=== PATIENT | female | born 1995 | race American Indian/Alaskan Native ===

== ENCOUNTER 2017-01-01 10:30 | Emergency (ER) | payer MEDICAID, OTHER ==
--- NOTE | 2017-01-01 11:22 | Emergency Department Report ---
HPI - General Chief Complaint: Psych Time Seen by Provider: 01/01/17 11:08 - HPI HPI: This is a 21-year-old Afro-Stateless female who presents to the emergency department I EMS from home with her godmother/cousin and her grandmother currently bedside. The patient apparently has been dealing with some depression like symptoms for the past one to 1.5 weeks. For the past 3-4 days the patient has become nonverbal. There is some listing on paperwork from [facility] as well as through triage that says the patient has bipolar. However family says that she had one episode of severe depression in February or March of last year that required inpatient admission to [facility] which is when she got medication and diagnosis. The patient was started on medication but stopped them herself when she got better. Family says that the patient just restarted her Lexapro, Wellbutrin, Risperdal and trazodone yesterday for the first time in about 9 months. There is been no mention by the patient of any suicidal or homicidal ideations or any hallucinations. However the patient is currently still nonverbal, even when family is asked to leave the room, and therefore the patient is a poor historian. ED Past Medical Hx - Past Medical History Previous Medical History?: Yes Hx Psychiatric Treatment: Yes (Bipolar) - Surgical History Past Surgical History?: No - Social History Smoking Status: Never Smoker Substance Use Type: None - Medications Home Medications: Home Medications Medication Instructions Recorded Confirmed Last Taken Type Escitalopram [Lexapro] 10 mg PO DAILY 01/01/17 01/01/17 12/31/16 History LORazepam [Ativan] 0.5 mg PO TID 01/01/17 01/01/17 Unknown History buPROPion [Wellbutrin] 100 mg PO BID 01/01/17 01/01/17 12/31/16 History risperiDONE [RisperDAL] 0.5 mg PO BID 01/01/17 01/01/17 12/31/16 History traZODone [Desyrel] 50 mg PO QHS 01/01/17 01/01/17 12/31/16 History ED Review of Systems ROS: Stated complaint: DEPRESSION Other details as noted in HPI Comment: Unobtainable due to pts medical conditions Psychiatric: anxiety, depression Physical Exam - Physical Exam Physical Exam: GENERAL: The patient is well-developed well-nourished. HEENT: Normocephalic. Atraumatic. Patient has staring forwards with occasional blinking and otherwise unable to assess extra ocular motion. Patient has moist mucous membranes. Pupils equal reactive to light bilaterally. NECK: Supple. Trachea is midline. CHEST/LUNGS: Clear to auscultation. There is no respiratory distress noted. HEART/CARDIOVASCULAR: Regular. There is no tachycardia. There is no gallop rub or murmur. ABDOMEN: Abdomen is soft, nontender. Patient has normal bowel sounds. There is no abdominal distention. SKIN: Skin is warm and dry. NEURO: Patient is currently nonverbal and noncooperative. She withdraws to painful stimuli. MUSCULOSKELETAL: There is no tenderness or deformity. There is no evidence of acute injury. ED Medical Decision Making - Lab Data Result diagrams: 01/01/17 11:17 01/01/17 11:17 - Medical Decision Making 21-year-old female presents the emergency department being nonverbal or even slightly catatonic with some suggestion of depression by family members. The patient is nonverbal and a poor historian it is unknown if there was any inciting event. Patient does withdraw from painful stimuli. However since the patient remains nonverbal I cannot clearly this patient to say that she is not a candidate to be a 1013 as there could be some underlying severe hallucinations or suicidal/homicidal ideations. If nothing else, the patient is a candidate to be a 1013 as she is not able to take care of herself and complete her ADLs. For this reason the patient will need inpatient psychiatric admission for stabilization. The patient's labs have been unremarkable including no signs of infection, and I to light abnormalities, renal insufficiency. Patient has negative urine drug screen. No urinary tract infection and the patient is not . Urine drug screen positive only for marijuana. Patient's vital signs stable throughout her ED course including being afebrile. Patient appears medically cleared for psychiatric placement and crisis services been contacted to assist. - Differential Diagnosis depression, bipolar, catatonia, schizophrenia Critical Care Time: No Critical care attestation.: If time is entered above; I have spent that time in minutes in the direct care of this critically ill patient, excluding procedure time. ED Disposition Clinical Impression: Nonverbal, Catatonia Depression Qualifiers: Depression Type: unspecified Qualified Code(s): F32.9 - Major depressive disorder, single episode, unspecified Disposition: DC/TX PSY HOSP/PSY UNIT Is pt being admited?: No Condition: Stable Referrals: PRIMARY CARE, [Primary Care Provider] - 3-5 Days Time of Disposition: 12:43
[2017-01-01 11:34] LABS: Basophils % (Auto) 0.8 % (0.0-1.8); Eosinophils % (Auto) 0.5 % (0.0-4.3); Hematocrit 41.4 % (30.3-42.9); Hemoglobin 13.9 gm/dl (10.1-14.3); Mean Corpuscular HGB Conc 34 % (30-34); Mean Corpuscular Hemoglobin 32 pg (28-32); Mean Corpuscular Volume 95 fl (79-97); Platelet Count 240 K/mm3 (140-440); Red Blood Count 4.34 M/mm3 (3.65-5.03); Red Cell Distribution Width 12.5 % (13.2-15.2); White Blood Count 5.8 K/mm3 (4.5-11.0)
[2017-01-01 11:45] LABS: Anion Gap 15 mmol/L; BUN/Creatinine Ratio 5.55; Blood Urea Nitrogen 5 mg/dL (7-17); Calcium 9.2 mg/dL (8.4-10.2); Carbon Dioxide 26 mmol/L (22-30); Chloride 102.3 mmol/L (98-107); Glucose 104 mg/dL (65-100); Potassium 3.5 mmol/L (3.6-5.0); Sodium 140 mmol/L (137-145)
[2017-01-01 12:13] LABS: Urine Drugs of Abuse Note Disclamer
[2017-01-01 12:23] LABS: Bilirubin,Urine NEG (Negative); Blood,Urine NEG (Negative); Ketones,Urine TR mg/dL (Negative); Leukocyte Esterase,Urine TR (Negative); Mucus,Urine 3+ /HPF; Nitrite,Urine NEG (Negative)
--- NOTE | 2017-01-01 14:07 | Cat Scan Report ---
CT head without contrast: Altered mental status. The cerebral anatomy appears unremarkable. No evidence of mass, focal lesion, hemorrhage, or extracerebral collection. The visualized bones are unremarkable. There is a small retention cyst in the right sphenoid sinus. No prior study for comparison. Impression: Normal intracranial scan.
[2017-01-01] MEDS ORDERED: AMMONIA INHALANT IH ONE (21:49)
[2017-01-02] MEDS ORDERED: ATIVAN IM ONE (14:47)
[2017-01-02] MEDS ORDERED: ZOFRAN ONE (18:24)
[2017-01-02] MEDS ORDERED: ZOFRAN IV ONE (18:37)
--- NOTE | 2017-01-02 19:16 | Consultation ---
History of Present Illness - Reason for Consult Consult date: 01/02/17 Reason for consult: psychiatric evaluation - Chief Complaint Chief complaint: " She had an episode" per the grandmother Patient is nonverbal - History of Present Psychiatric Illness Cornelio Carrera is a 21 year old black female brought to the emergency department by her family. They noticed about 1-2 weeks ago she was not acting herself and seemed confused or dazed. Starting yesterday she did not speak and had to be prompted to care for herself, including toileting. She has a history of a similar episode one year ago there are hospitalization in psychiatric facility [facility]. Family reported that she was there for approximately 2 weeks and went home and recovered fairly quickly after that. She went on to graduate from high school after that. Patient's been off of her medications for an unknown amount of time and then began taking them yesterday. Medications included Lexapro, Wellbutrin, Risperdal, and trazodone. Family denies alcohol or substance use. Her urine drug screen is positive for marijuana. On my initial exam she was nonverbal, resistant to passive movement of her extremities, resistant to open her eyes when I attempted. Dr. Rutherford examined her a few hours later and at that time her eyes were open, although her blink rate is significantly slow, and per his exam she was flaccid. She was also incontinent of urine 2. There is concern for subclinical status epilepticus and therefore Ativan was administered at approximately 1512 and then again at 1517. Following the administration of Ativan she began to respond to external stimuli, although remained nonverbal. Following this exam, she was examined again. She remained nonverbal with the exception of soft whisper of one word. Limbs flaccid. She appeared to have difficulty swallowing and shortly after vomited. She vomited twice. We are unable to ascertain her thought process or thought content or any psychotic symptoms Medications and Allergies Allergies Allergy/AdvReac Type Severity Reaction Status Date / Time ceftriaxone sodium Allergy Rash Verified 11/02/13 18:20 [From Rocephin] Home Medications Medication Instructions Recorded Confirmed Last Taken Type Escitalopram [Lexapro] 10 mg PO DAILY 01/01/17 01/01/17 12/31/16 History LORazepam [Ativan] 0.5 mg PO TID 01/01/17 01/01/17 Unknown History buPROPion [Wellbutrin] 100 mg PO BID 01/01/17 01/01/17 12/31/16 History risperiDONE [RisperDAL] 0.5 mg PO BID 01/01/17 01/01/17 12/31/16 History traZODone [Desyrel] 50 mg PO QHS 01/01/17 01/01/17 12/31/16 History Past psychiatric history - Past Medical History Past Medical History: No medical history - past Psychiatric treatment and history Psych: Psychosis psychiatric treatment history: She was treated for a similar episode one year ago She was sent to [email or web address] at that time Family denies any recent depression or anxiety or other evidence of psychosis Family denies she's ever had a suicide attempt - Social History Social history: lives with family, other (urine drug screen is positive for marijuana) Mental Status Exam - Vital signs Last Vital Signs Temp 98 F 01/02/17 05:23 Pulse 65 01/02/17 08:29 Resp 15 01/02/17 08:29 BP 124/76 01/02/17 08:29 Pulse Ox 93 01/02/17 08:29 - Exam Narrative exam: Unable to determine orientation, thought content, thought process, psychotic symptoms Speech: other (nonverbal) Concentration: other (unable to determine) Motor activity: lethargic Level of consciousness: other (appears variable) Appetite: decreased Results Result Diagrams: 01/01/17 11:17 01/01/17 11:17 All other labs normal. Assessment and Plan Assessment and plan: Impression: Catatonia versus subclinical status epilepticus She is nonverbal, has a reduced blink rate, and gegenhalten is present She responded to Ativan which would support a diagnosis of either condition Plan: She is at risk for aspiration Consider she may need evaluation for swallowing GI prophylaxis is recommended DVT prophylaxis is recommended It is unknown how long this condition will occur Monitor closely for nutritional needs Ativan 1 mg 3 times a day IV for the treatment of suspected catatonia, and this would also be helpful for status epilepticus. Cardiac monitoring is recommended that she will be getting Ativan on a scheduled basis Recommend EEG to rule out status epilepticus Psychiatry will continue to follow
[2017-01-02] MEDS: ATIVAN IV SCH (21:06)
[2017-01-03] MEDS ORDERED: ATIVAN IV ONE (04:56)
[2017-01-03] MEDS ORDERED: ZOFRAN ONE (05:41)
[2017-01-03] MEDS ORDERED: ZOFRAN IV ONE (05:54)
[2017-01-03] MEDS: ATIVAN IV SCH ×3 (09:09→21:02)
--- NOTE | 2017-01-03 10:12 | Progress Note ---
Subjective - Reason for Consult Consult date: 01/03/17 Reason for consult: Psychiatry Follow-up - Chief Complaint Chief complaint: "Patient communicating more today" This is a 21 year old black female brought to the emergency department by her family. They noticed a change in patient's behavior (confusion or being dazed). Today patient presents with dazed type of stare with intermittent blinking of her eyes. She would answers questions with a delayed responses. She remembered being in another room yesterday by pointing to that location. Patient could tell me her b-day, but could not tell me the president of the [employer]. Her gait is unsteady and needed assistance ambulating. Per her assigned RN, she is verbal more today than yesterday. Patient struggled swallowing a small teaspoon of grits. Last administration of Zofran was this morning @ 0555 for N/V. No gestures of SI/HI's or AVH's at this time. Mental Status Exam - Vital signs Last Vital Signs Temp 98 F 01/02/17 05:23 Pulse 87 01/03/17 06:00 Resp 18 01/03/17 06:00 BP 102/67 01/03/17 06:00 Pulse Ox 100 01/03/17 06:00 - Exam Narrative exam: Unable to assess per patient's presentation Assessment and Plan Impression: This is a 21 year old black female brought to the emergency department by her family. They noticed a change in patient's behavior ( confusion or being dazed). Today patient presents with dazed type of stare with intermittent blinking of her eyes. She has an unsteady on gait and need assistance while ambulating. No gestures of SI/HI's or AVH's at this time. Ativan is lessen the catatonic state of the patient. Positive for marijuana. Collateral information from grandmother Karina Fry - She states that patient has seen a psychiatrist in the past. She patient was dx with depression and possible bipolar. She could not remember the patient's medications. She did mentioned that the patient had a similar situation last year with altered mental status after she went to a democrat. The grandmother believe the patient consumed "some type of drug " at this democrat. Recommendation/Plan: Continue 1013. She is at risk for aspiration with a need for a swallowing evaluation. GI/DVT Prophylaxis is recommended. Monitor closely for nutritional needs. Continue Ativan 1 mg 3 times a day IV for the treatment of suspected catatonia. Also, this would also be helpful for status epilepticus. Cardiac monitoring is recommended because of the scheduled Ativan. Recommend EEG to rule out status epilepticus. Psychiatry will continue to follow.
--- NOTE | 2017-01-03 10:49 | Emergency Department Report ---
Blank Doc - Documentation Documentation: Patient was reevaluated today by myself. She is currently getting her daily evaluation by the psychiatry service. Patient currently in bed 14 standing up looking out the window as the patient was found wandering in the halls in the back rooms towards psych. I had a low suspicion previous of the subclinical status epilepticus that was suggested previously and I believe that this reaffirms that the patient has more of a psych issue with problems with catatonia. The patient has been seen eating when her grandmother comes and feeds her but the patient still will not take any food or medication to pass a swallow study. She will remain an aspiration risk until we can see that she is visibly eating or drinking on her own accord. She will continue to get the Ativan as treatment for catatonia but will have to remain on a monitor when doing so. Once the patient is able to show improvement and/or pass a swallow study and become less of a concern for aspiration, home meds will be restarted. Her vital signs are stable. No new labs were ordered today.
[2017-01-03] MEDS ORDERED: LEXAPRO PO SCH (11:00)
[2017-01-03] MEDS ORDERED: RisperDAL PO SCH (11:00)
[2017-01-03] MEDS ORDERED: WELLBUTRIN PO SCH (11:00)
--- NOTE | 2017-01-03 13:42 | Event Note ---
Date: 01/03/17 1215 - Informed assigned MOLD PRESSER that patient complains of a sore throat. TSH serum drawn along with culture swab of her throat.
[2017-01-04] MEDS ORDERED: ZOFRAN ONE (01:05)
[2017-01-04] MEDS ORDERED: ZOFRAN IV ONE (01:15)
[2017-01-04] MEDS ORDERED: BENADRYL IM ONE (01:21)
[2017-01-04] MEDS ORDERED: GEODON IM ONE (01:25)
--- NOTE | 2017-01-04 01:25 | Event Note ---
Date: 01/04/17 Patient is vomiting and requested medication. Zofran initially ordered. However, patient began screaming and stating her throat was hurting. Patient will not speak fluently but will say "okay" and "pain" at times. She would not cooperate and allow me to look in her throat. Apparently patient had a negative strep test earlier and has been witnessed eating without difficulty when her grandmother feeds her but will not eat or drink home (as per DR Poe note). Geodon and Benadryl ordered since pt is screaming intermittently complaining of pain to her throat. Pending CT without contrast of neck to ensure that there isn't any obvious airway compromise or swelling. Patient was resting fter receiving Geodon 10 mg of Benadryl [address] scan reveals no neck masses, abscesses, adenopathy, and no airway compromise
[2017-01-04] MEDS ORDERED: WATER FOR INJ (PF) 10 ML ONE (01:28)
[2017-01-04] MEDS: GEODON IM ONE ×2 (01:48→01:59)
--- NOTE | 2017-01-04 03:43 | Cat Scan Report ---
FINAL REPORT PROCEDURE: CT NECK WO CON TECHNIQUE: Computerized axial tomography of the soft tissue neck was performed following the IV injection of iodinated nonionic contrast. HISTORY: difficulty swallowing COMPARISON: No prior studies are available for comparison. FINDINGS: Skull and scalp: Normal. Paranasal sinuses: Normal. Nasopharynx: Normal . Oral cavity: Normal . Epiglottis/vallecula: Normal . Larynx/pyriform sinuses: Normal . Thyroid gland: Normal . Lymph nodes: None enlarged . Salivary glands: Normal . Upper thorax: Normal . IMPRESSION: There is no neck mass, abscess or adenopathy. There is no airway compromise. Bony structures are unremarkable.
[2017-01-04] MEDS: ATIVAN IV SCH ×4 (10:23→21:40)
--- NOTE | 2017-01-04 13:07 | Progress Note ---
Subjective - Reason for Consult Consult date: 01/04/17 Reason for consult: psychiatric follow up - Chief Complaint Chief complaint: "Patient communicating more today" This is a 21 year old black female brought to the emergency department by her family. Trouble swallowing. Indicated by observation and patient blinking to communication, although slow blink rate. No gestures of SI/HI's or AVH's at this time. Nursing staff reports that she was yelling last night and when family came in to see more dependent upon them for ADLs. She had a CT of her neck yesterday for concerns with swallowing. Staff report that her family has been giving her food and liquids. Patient is nonverbal with me today. She appears to have difficulty swallowing although her breathing does not appear to be affected. She indicated via blinking that she is having trouble swallowing. She has been receiving Ativan 3 times a day, IV for the treatment of catatonia. Mental Status Exam - Vital signs Last Vital Signs Temp 98.1 F 01/03/17 11:10 Pulse 85 01/03/17 18:59 Resp 20 01/04/17 05:48 BP 141/82 01/03/17 11:10 Pulse Ox 98 01/04/17 05:48 - Exam Orientation: person (she turns her head when her name is called) Affect: flat Mood: other (unable to assess) Thought content: other (unable to assess) Perceptions: other (unable to assess) Speech: other (nonverbal) Concentration: other (unable to assess) Motor activity: lethargic Level of consciousness: alert, confused Interaction: other (eye contact only) Assessment and Plan Impression: This is a 21 year old black female brought to the emergency department by her family. They noticed a change in patient's behavior (confusion or being dazed). Today patient remains with a dazed type of stare with intermittent blinking of her eyes. She has an unsteady on gait and need assistance while ambulating. No gestures of SI/HI's or AVH's at this time. Ativan is to lessen the catatonic state of the patient. Positive for marijuana. Catatonia. Muscle tone is affected and she is non-ambulatory intermittently. She indicates that she is having difficulty swallowing. This can put her at risk of aspiration and DVT. Plan: Swallow evaluation ordered Recommended GI prophylaxis, DVT prophylaxis. She is at risk for aspiration recommended to hold by mouth intake until the swallow evaluation Hydration status needs to be addressed. Consider IV fluids Hold off on antipsychotics Recommend Ativan 1 mg 4 times daily intravenously for catatonia She needs to be on cardiac monitoring while on Ativan intravenously
[2017-01-04] MEDS ORDERED: NACL 0.9% 1000 ML 1,000 ML IV ONE (18:16)
--- NOTE | 2017-01-04 19:50 | Consultation ---
History of Present Illness - Reason for Consult Consult date: 01/04/17 Requesting physician: HAM VALVERDE - History of Present Illness 21 YO female with Depression, bipolar disorder NOS, Medication Noncompliance presents to ED for evaluation. Pt brought to ED by family members for acting depressed, and not talking for 3-4 days prior to presentation to ED. Pt resting comfortably in bed at time of exam, with family at bedside. CT scan reviewed. No mechanical obstruction. Pt is voluntarily refraining from eating and swallowing. No acute mechanical or neurologic derangement. Labs reviewed and unremarkable. Past History Past Medical History: other (Depression, bipolar, Noncompliance) Past Surgical History: No surgical history, Other (reviewed) Social history: single, lives with family, other (urine drug screen is positive for marijuana). denies: smoking, alcohol abuse, prescription drug abuse Family history: hypertension Medications and Allergies Allergies Allergy/AdvReac Type Severity Reaction Status Date / Time ceftriaxone sodium Allergy Rash Verified 11/02/13 18:20 [From Rocephin] Home Medications Medication Instructions Recorded Confirmed Last Taken Type Escitalopram [Lexapro] 10 mg PO DAILY 01/01/17 01/01/17 12/31/16 History LORazepam [Ativan] 0.5 mg PO TID 01/01/17 01/01/17 Unknown History buPROPion [Wellbutrin] 100 mg PO BID 01/01/17 01/01/17 12/31/16 History risperiDONE [RisperDAL] 0.5 mg PO BID 01/01/17 01/01/17 12/31/16 History traZODone [Desyrel] 50 mg PO QHS 01/01/17 01/01/17 12/31/16 History Active Meds: Active Medications Sodium Chloride (Nacl 0.9% 1000 Ml) 1,000 mls @ 125 mls/hr IV ONCE ONE Stop: 01/05/17 02:15 Lorazepam (Ativan) 1 mg IV QID URIEL Last Admin: 01/04/17 18:49 Dose: 1 mg Review of Systems ROS unobtainable: due to mental status Constitutional: other Exam - Constitutional Vitals: Temp Pulse Resp BP Pulse Ox 98.6 F 105 H 18 138/86 99 01/04/17 10:00 01/04/17 10:00 01/04/17 13:07 01/04/17 10:00 01/04/17 13:07 General appearance: Present: no acute distress, well-nourished - EENT Eyes: Present: PERRL, EOM intact ENT: hearing intact, clear oral mucosa - Neck Neck: Present: supple, normal ROM. Absent: rigidity, enlarged thyroid, masses or JVD, cervical LAD, carotid bruits - Respiratory Respiratory effort: normal Respiratory: bilateral: CTA - Cardiovascular Heart Sounds: Present: S1 & S2. Absent: rub, click - Extremities Extremities: pulses symmetrical, No edema Peripheral Pulses: within normal limits - Abdominal General gastrointestinal: Present: soft, non-tender, non-distended, normal bowel sounds Female genitourinary: Present: normal - Integumentary Integumentary: Present: clear, warm, dry - Musculoskeletal Musculoskeletal: gait normal, strength equal bilaterally - Psychiatric Psychiatric: appropriate mood/affect, intact judgment & insight - Neurologic Neurologic: CNII-XII intact, moves all extremities Results - Labs CBC & Chem 7: 01/01/17 11:17 01/01/17 11:17 Assessment and Plan - Patient Problems (1) Depression Status: Acute Qualifiers: Depression Type: unspecified Major depression recurrence: M Active/ Remission status: A Major depression episode severity: M Psychotic features : P Trimester: T Qualified Code(s): F32.9 - Major depressive disorder, single episode, unspecified Plan to address problem: Recommend psych placement, (2) Nonverbal Status: Acute Plan to address problem: Psychiatry consulted.
[2017-01-05] MEDS: ATIVAN IV SCH ×5 (01:10→22:15)
--- NOTE | 2017-01-05 09:40 | Progress Note ---
Subjective - Reason for Consult Consult date: 01/05/17 Reason for consult: Psychiatry Follow-up - Chief Complaint Chief complaint: "Patient will not answer questions" This is a 21 year old black female brought to the emergency department by her family. Today patient was calm, but uncooperative when asked questions. She would look away during the assessment. Her grandmother was at the bedside and stated, "She want eat." Also, I observed patient looking at the ceiling and covering her ears, possibly responding to internal stimuli. The grandmother stated that patient acknowledged hearing voices earlier this morning. Neck CT was normal. Per nurse notes, patient verbally communicated with her grandmother today. No gestures of SI/HI's or VH's at this time. Patient show no signs of distress (airway obstruction). Mental Status Exam - Vital signs Last Vital Signs Temp 98.6 F 01/04/17 10:00 Pulse 105 H 01/04/17 10:00 Resp 18 01/04/17 13:07 BP 138/86 01/04/17 10:00 Pulse Ox 99 01/04/17 13:07 - Exam Narrative exam: MSE: Appearance: uncooperative Behavior: psychomotor retarded intermittently, poor eye contact Speech: nonverbal intermittently Mood: unable to assess Affect: blunted, flat Thought Process: unable to assess Thought Content: possible AH's Cognition: unable to assess Motor Activity: Lying in bed Insight: unable to assess Judgment: unable to assess Assessment and Plan Impression: This is a 21 year old black female brought to the emergency department by her family. Today patient was calm, but uncooperative when asked questions. She would look away during the assessment. Her grandmother was at the bedside and stated, "She want eat." No gestures of SI/HI's and VH's. Neck CT normal. Positive for marijuana. Recommendation/Plan: Swallow evaluation recommended possible risk for aspiration. Recommended GI/DVT prophylaxis. Continue Ativan 1 mg QID for catatonia. Recommend cardiac monitoring (Ativan IV). Possible modification of medication once discussed with psy team. Start Thorazine 12.5 mg Im Q12 for psychosis.
[2017-01-05] MEDS: THORAZINE IM SCH (17:39)
[2017-01-06] MEDS: THORAZINE IM SCH ×2 (04:30→17:29)
[2017-01-06] MEDS: ATIVAN IV SCH ×4 (09:58→22:05)
--- NOTE | 2017-01-06 12:23 | Progress Note ---
Subjective - Reason for Consult Consult date: 01/06/17 Reason for consult: psychiatric follow up - Chief Complaint Chief complaint: "Patient will not answer questions" This is a 21 year old black female brought to the emergency department by her family for bizarre behavior and became nonverbal and would not complete her ADLs without prompting. Nonverbal today. Limbs flaccid. Ativan was held during the night. Nurses noted she was not agitated or anxious and therefore held it. Staff report she has not indicated she wants to eat or drink but does so with the assistance of her family. Per the record, she was out of bed in the last 24 hours and was agitated. Mental status exam: Gen. appearance: dressed in hospital gown. Unable to observe gait. She was non ambulatory at the time of exam Orientation: unable to assess Psychomotor activity: retarded, limbs flaccid. Involuntary movements: None Speech: nonverbal Mood: unable to assess Affect: flat Thought process: unable to assess Thought content: unable to assess Perceptions: unable to assess. Per the record, she reported auditory hallucinations. Memory: unable to assess Insight: impaired Judgment: impaired Ability to perform ADLs: impaired Mental Status Exam - Vital signs Last Vital Signs Temp 98.7 F 01/06/17 08:02 Pulse 83 01/06/17 08:02 Resp 16 01/06/17 08:02 BP 114/76 01/06/17 08:02 Pulse Ox 98 01/06/17 08:02 Assessment and Plan Impression: Catatonia. Unresolved. Intermittently able to ambulate and will yell. She is not receiving the Ativan as scheduled. Recommendation/Plan: Swallow evaluation recommended possible risk for aspiration. Recommended GI/DVT prophylaxis. Continue Ativan 1 mg QID for catatonia. Recommend monitoring (Ativan IV). Possible modification of medication once discussed with psy team. Continue Thorazine 12.5 mg Im Q12 for psychosis.
[2017-01-07] MEDS: THORAZINE IM SCH (03:34)
[2017-01-07] MEDS ORDERED: COGENTIN IM ONE (13:25)
[2017-01-07] MEDS ORDERED: HALDOL IM ONE (13:25)
--- NOTE | 2017-01-07 14:30 | Progress Note ---
Subjective - Reason for Consult Consult date: 01/07/17 Reason for consult: Psychiatry Follow-up - Chief Complaint Chief complaint: "Patient still nonverbal" This is a 21 year old black female brought to the emergency department by her family for bizarre behavior. Today patient is calm, drowsy and nonverbal today. Per her assigned RN, patient has been sleep throughout the shift. Patient still has poor appetite today. No gestures of SI/HI's and AVH's at this time. Patient was observed moving all extremities. Mental Status Exam - Vital signs Last Vital Signs Temp 97.6 F 01/07/17 09:09 Pulse 110 H 01/07/17 09:09 Resp 16 01/07/17 09:09 BP 117/84 01/07/17 09:09 Pulse Ox 99 01/07/17 09:09 - Exam Narrative exam: MSE: Appearance: uncooperative Behavior: psychomotor retarded intermittently, poor eye contact Speech: nonverbal and mumbles intermittently Mood: unable to assess Affect: flat Thought Process: unable to assess Thought Content: possible AH's Cognition: drowsy Motor Activity: lying in bed Insight: impaired Judgment: impaired Assessment and Plan Impression: This is a 21 year old black female brought to the emergency department by her family for bizarre behavior. Today patient is calm, drowsy and nonverbal. Per her assigned RN, patient has been sleep throughout the shift. Patient still has poor appetite today. No gestures of SI/HI's and AVH's at this time. Patient voluntarily want eat at this time. Recommendation/Plan: Continue 1013 with possible placement to inpatient psy services. Modified frequency of the Ativan to 1 mg TID for catatonia. Start Haldol 5 mg PO HS for psychosis and Cogentin 0.5 mg PO HS for EPS prophylaxis. Swallowing evaluation completed by OFFICE SPECIALIST (passed).
[2017-01-07] MEDS ORDERED: COGENTIN IM NR (15:00)
[2017-01-07] MEDS ORDERED: HALDOL IM NR (15:00)
[2017-01-08] MEDS: ATIVAN IV SCH ×4 (08:50→22:11)
[2017-01-08] MEDS ORDERED: VASELINE LIP THERAPY TP PRN (09:39)
--- NOTE | 2017-01-08 10:46 | Progress Note ---
Subjective - Reason for Consult Consult date: 01/08/17 Reason for consult: Psychiatry Follow-up - Chief Complaint Chief complaint: "Patient said a couple wordsl" This is a 21 year old black female brought to the emergency department by her family for bizarre behavior. Today patient is calm but drowsy. She was easy to arouse and stayed awake during our conversation. She was able to tell me her name and . She asked for her grandmother during the assessment. She has asked for her grandmother in the past. She still refuses to drink or eat. She would extend her arms on command, no tremors noted. She says minimum words, but this an improvement from yesterday. No gestures of SI/HI's and AVH's. She did not take the Haldol/Cogentin (PO) last night. A reason for not given the medication was not charted. Mental Status Exam - Vital signs Last Vital Signs Temp 98.3 F 01/08/17 07:20 Pulse 121 H 01/08/17 07:20 Resp 20 01/08/17 07:20 BP 113/80 01/08/17 07:20 Pulse Ox 97 01/08/17 07:20 - Exam Narrative exam: MSE: Appearance: calm, cooperative Behavior: psychomotor retarded intermittently, poor eye contact Speech: verbalized her name and Mood: unable to assess Affect: flat Thought Process: unable to assess Thought Content: possible AH's Cognition: 'sleepy" Motor Activity: lying in bed Insight: poor Judgment: impaired Assessment and Plan Impression: This is a 21 year old black female brought to the emergency department by her family for bizarre behavior. Today patient is calm but drowsy. She was easy to arouse and stayed awake during our conversation. She was able to tell me her name and . She asked for her grandmother during the assessment. She has asked for her grandmother in the past. She still refuses to drink or eat. No gestures of SI/HI's and AVH's. Recommendation/Plan: Continue 1013 with possible placement to inpatient psy services. Continue Ativan 1 mg TID for catatonia. Continue Haldol 5 mg PO HS for psychosis and Cogentin 0.5 mg PO HS for EPS prophylaxis.
--- NOTE | 2017-01-08 18:10 | Event Note ---
Date: 01/08/17 Patient's grandmother says the patient took Ativan 0.5 mg PO and Risperdal 0.5 mg PO HS in the past. Currently she takes Trazodone 50 mg PO HS, Wellbutrin 100 mg BID, and Lexapro 10 mg PO Daily.
[2017-01-08] MEDS: COGENTIN PO SCH ×2 (21:52→22:10)
[2017-01-08] MEDS: HALDOL PO SCH ×2 (21:52→22:10)
[2017-01-09] MEDS: ATIVAN IV SCH (10:30)
--- NOTE | 2017-01-09 12:59 | Progress Note ---
Subjective - Reason for Consult Consult date: 01/09/17 Reason for consult: psychiatric follow-up - Chief Complaint Chief complaint: "nonverbal" This is a 21 year old black female brought to the emergency department by her family for bizarre behavior. Today patient is calm and sitting in a chair at the doorway. No by mouth intake without prompting by her grandmother, who is not present. She would extend her arms on command. She made eye contact and attempted to shrug her shoulders in an answer to a question. No gestures of SI/ HI's and AVH's. The nurse reported giving her Ativan intravenously prior to the interview. I urged her to attempt to stand and she began crying. Mental Status Exam - Vital signs Last Vital Signs Temp 98.3 F 01/09/17 08:01 Pulse 103 H 01/09/17 08:01 Resp 18 01/09/17 08:01 BP 105/73 01/09/17 08:01 Pulse Ox 98 01/09/17 08:01 Assessment and Plan MSE: Appearance: calm, cooperative psychomotor retarded, poor eye contact Speech: Nonverbal today Mood: unable to assess Affect: flat Thought Process: unable to assess Thought Content: Unable to assess Unable to assess perceptual disturbances Insight: poor Judgment: impaired Impression: This is a 21 year old black female brought to the emergency department by her family for bizarre behavior. Today patient is calm and sitting in a chair at the doorway. No by mouth intake without prompting by her grandmother, who is not present. She would extend her arms on command. She made eye contact and attempted to shrug her shoulders in an answer to a question. No gestures of SI/ HI's and AVH's. Recommendation/Plan: Continue 1013 with possible placement to inpatient psych services. Continue Ativan 1 mg TID for catatonia. Continue Haldol 5 mg PO HS for psychosis and Cogentin 0.5 mg PO HS for EPS prevention
[2017-01-09] MEDS: ATIVAN PO SCH ×2 (18:39→22:14)
[2017-01-09] MEDS: COGENTIN PO SCH (22:50)
[2017-01-09] MEDS: HALDOL PO SCH (22:51)
[2017-01-10] MEDS: ATIVAN IV SCH (08:08)
[2017-01-10] MEDS: ATIVAN PO SCH (08:43)
--- NOTE | 2017-01-10 11:20 | Progress Note ---
Subjective - Reason for Consult Consult date: 01/10/17 Reason for consult: Psychiatry follow-up - Chief Complaint Chief complaint: "Verbal Today" This is a 21 year old black female brought to the emergency department by her family for bizarre behavior. Today patient is calm and cooperative during discussion. She stated that she would like to walk around the ER. We went for a walk and she was able to ID her assigned RN. When we returned to her room, she told me that she wanted something to drink. Also, she was able to tell me her and the name of this hospital. She denies SI/HI's and AVH's. Mental Status Exam - Vital signs Last Vital Signs Temp 98.1 F 01/09/17 19:27 Pulse 112 H 01/09/17 19:27 Resp 16 01/09/17 19:27 BP 128/78 01/09/17 19:27 Pulse Ox 98 01/09/17 19:27 - Exam Narrative exam: MSE: Appearance: calm, cooperative Behavior: good eye contact Speech: low rate and tone Mood: "okay" Affect: flat Thought Process: circumstantial Thought Content: denies SI/Hi's and AVH's Motor Activity: ambulatory Insight: poor Judgment: improving Assessment and Plan Impression: This is a 21 year old black female brought to the emergency department by her family for bizarre behavior. Today patient is calm and cooperative during discussion. She stated that she would like to walk around the ER. We went for a walk and she was able to ID her assigned RN. When we returned to her room, she told me that she wanted something to drink. Also, she was able to tell me her and the name of this hospital. She denies SI/HI's and AVH's. Spoke with her grandmother (Karina Fry) [phone]. She will be picking up the patient. The patient will reside with her grandmother once discharged. Recommendation/Plan: Rescind 1013. Continue Ativan 1 mg BID (taper). Continue Haldol 5 mg PO HS for psychosis and Cogentin 0.5 mg PO HS for EPS prevention. The grandmother will take patient to the [facility] ([facility] can provide medication management ( Ativan taper) and start her back on her psy medications.
[2017-01-10 19:54] VITALS: BP 124/79
[2017-01-10] MEDS ORDERED: ATIVAN PO SCH (22:00)
== END 2017-01-10 19:54 | disposition home or self-care (01) ==
LOC: EEVIPCON 10:30 → ED 10:30
DX: F32.9 Major depressive disorder, single episode, unspecified (principal); F20.2 Catatonic schizophrenia; F31.9 Bipolar disorder, unspecified; Z88.8 Allergy status to other drugs, medicaments and biological substances
CPT/HCPCS: 36415; 51701; 70450; 70490; 80048; 80307; 81001; 84443; 84703; 85025; 87116; 87430; 96372; 96374; 96375; 99285; G0480; J0515; J1200; J1630; J2060; J2405; J3230; J3486; J7030; 80320